=== PATIENT | male | born 1980 | race Caucasian/White ===

== ENCOUNTER 2017-07-17 09:27 | Inpatient (IN) | payer SELFPAY ==
[~2017-07-17] VITALS: Ht 167.6 cm; Wt 63.6 kg
[2017-07-17] MEDS ORDERED: SODIUM CHLORIDE 0.9% 1,000 ML IV ONE (11:07)
[2017-07-17] MEDS ORDERED: HALOPERIDOL LACTATE 5MG/ML VIAL IM STA (11:07)
[2017-07-17] MEDS ORDERED: DIPHENHYDRAMINE 50MG/ML VIAL IV STA (11:07)
[2017-07-17] MEDS ORDERED: LORAZEPAM 2MG/ML CPJ IV STA (11:07)
[2017-07-17 11:36] LABS: BASOPHILS % 0.8 % (0.0-2.0); EOSINOPHILS % 0.6 % (0.0-5.0); HEMATOCRIT. 42.7 % (42.0-52.0); HEMOGLOBIN. 14.9 g/dL (14.0-18.0); LYMPHOCYTES % 24.2 % (20.0-50.0); MEAN CORPUSCULAR HEMOGLOBIN 30.5 pg (28.0-32.0); MEAN CORPUSCULAR VOLUME 87.3 fL (80.0-94.0); MEAN PLATELET VOLUME 7.5 fl (7.4-10.4); MONOCYTES % 11.5 % (2.0-8.0); NEUTROPHILS % 62.9 % (40.0-76.0); PLATELET 311 x1000/uL (130-400); RED BLOOD CELL COUNT 4.89 mill/uL (4.7-6.1); RED CELL DISTRIBUTION WIDTH 13.6 % (11.6-14.6)
[2017-07-17 11:41] LABS: CHLORIDE 110 mEq/L (98-107)
[2017-07-17 11:46] LABS: ETHANOL BLOOD < 10 mg/dL
[2017-07-17 12:30] LABS: CLARITY URINE CLEAR (CLEAR); COLOR URINE YELLOW (YELLOW); KETONES URINE NEGATIVE (NEGATIVE); LEUKOCYTE ESTERASE URINE NEGATIVE (NEGATIVE); NITRITE URINE NEGATIVE (NEGATIVE); OCCULT BLOOD URINE 2+ (NEGATIVE); PROTEIN URINE NEGATIVE (NEGATIVE); SPECIFIC GRAVITY URINE 1.029 (1.005-1.030)
[2017-07-17 12:49] LABS: *AMPHETAMINES SCREEN URINE NEGATIVE (NEGATIVE); *BARBITURATES SCREEN URINE NEGATIVE (NEGATIVE); *BENZODIAZEPINES SCREEN URINE NEGATIVE (NEGATIVE); *COCAINE SCREEN URINE NEGATIVE (NEGATIVE); CANNABINOID URINE SCREEN PRESUMTIVE POSITIVE (NEGATIVE); METHADONE URINE SCREEN NEGATIVE (NEGATIVE); OPIATES URINE SCREEN NEGATIVE (NEGATIVE); PHENCYCLIDINE URINE SCREEN NEGATIVE (NEGATIVE)
[2017-07-17] MEDS ORDERED: DEXTROSE 50% WATER 50ML SYRINGE IV ONE ×3 (14:30→17:00)
[2017-07-17] MEDS ORDERED: ONDANSETRON HCL 4MG/2ML VIAL IV PRN (19:15)
[2017-07-17] MEDS ORDERED: ACETAMINOPHEN 325MG TABLET PO PRN (19:15)
[2017-07-17] MEDS ORDERED: CLONIDINE 0.1MG TABLET PO PRN (19:15)
[2017-07-17] MEDS: DEXT 5%/0.45% NACL 1000ML 1,000 ML IV SCH (19:34)
[2017-07-17 22:22] VITALS: BP 93/50
[2017-07-18] VITALS: BP 93/50
[2017-07-18 00:34] VITALS: BP 125/63
[2017-07-18] MEDS: DEXT 5%/0.45% NACL 1000ML 1,000 ML IV SCH (02:14)
[2017-07-18 04:00] VITALS: BP 99/43
[2017-07-18] MEDS ORDERED: HALOPERIDOL LACTATE 5MG/ML VIAL IM NR (07:45)
[2017-07-18 07:58] LABS: EOSINOPHILS % 1.4 % (0.0-5.0); HEMATOCRIT. 41.1 % (42.0-52.0); HEMOGLOBIN. 14.3 g/dL (14.0-18.0); LYMPHOCYTES % 36.8 % (20.0-50.0); MEAN CORPUSCULAR HEMOGLOBIN 30.8 pg (28.0-32.0); MEAN CORPUSCULAR VOLUME 88.3 fL (80.0-94.0); MEAN PLATELET VOLUME 7.7 fl (7.4-10.4); MONOCYTES % 12.1 % (2.0-8.0); NEUTROPHILS % 48.7 % (40.0-76.0); PLATELET 295 x1000/uL (130-400); RED BLOOD CELL COUNT 4.65 mill/uL (4.7-6.1); RED CELL DISTRIBUTION WIDTH 13.2 % (11.6-14.6)
[2017-07-18 08:41] LABS: CHLORIDE 108 mEq/L (98-107)
[2017-07-18 20:00] VITALS: BP 137/75
[2017-07-19] VITALS: BP 141/60
[2017-07-19 04:00] VITALS: BP 138/90
[2017-07-19] MEDS: HALOPERIDOL LACTATE 5MG/ML VIAL IM PRN ×3 (06:51→20:16)
[2017-07-19 20:00] VITALS: BP 104/49
[2017-07-19] MEDS: DIPHENHYDRAMINE 50MG/ML VIAL IM PRN (21:22)
[2017-07-19] MEDS: LORAZEPAM 2MG/ML CPJ IM PRN (21:22)
[2017-07-20 07:41] VITALS: BP 121/88
[2017-07-20] MEDS: HALOPERIDOL LACTATE 5MG/ML VIAL IM PRN (08:10)
[2017-07-20] MEDS: DEXT 5%/0.45% NACL 1000ML 1,000 ML IV SCH ×2 (11:02→19:02)
[2017-07-20 12:00] VITALS: BP 124/89
[2017-07-20] MEDS: DIPHENHYDRAMINE 50MG/ML VIAL IM PRN (12:38)
[2017-07-20] MEDS: LORAZEPAM 2MG/ML CPJ IM PRN (12:38)
[2017-07-21] VITALS: BP 132/78
[2017-07-21] MEDS: HALOPERIDOL LACTATE 5MG/ML VIAL IM PRN ×2 (06:00→17:09)
[2017-07-21] MEDS: LORAZEPAM 2MG/ML CPJ IM PRN ×2 (10:18→18:17)
[2017-07-21] MEDS: DEXT 5%/0.45% NACL 1000ML 1,000 ML IV SCH (11:02)
[2017-07-21 16:00] VITALS: BP 110/63
[2017-07-21 20:00] VITALS: BP 115/68
[2017-07-22] VITALS: BP 121/79
[2017-07-22] MEDS: HALOPERIDOL LACTATE 5MG/ML VIAL IM PRN ×3 (01:12→20:06)
[2017-07-22] MEDS: LORAZEPAM 2MG/ML CPJ IM PRN ×2 (03:13→14:23)
[2017-07-22 04:00] VITALS: BP 117/78
[2017-07-22] MEDS: DEXT 5%/0.45% NACL 1000ML 1,000 ML IV SCH (19:02)
[2017-07-22 19:44] VITALS: BP 117/62
[2017-07-23] VITALS (8 sets, daily range): BP systolic 96–133; BP diastolic 54–68
[2017-07-23] MEDS: LORAZEPAM 2MG/ML CPJ IM PRN ×3 (00:09→16:50)
[2017-07-23] MEDS: HALOPERIDOL LACTATE 5MG/ML VIAL IM PRN ×2 (03:24→11:24)
[2017-07-24] VITALS: BP 100/58
[2017-07-24 04:00] VITALS: BP 115/60
[2017-07-24] MEDS: LORAZEPAM 2MG/ML CPJ IM PRN ×2 (07:01→17:01)
[2017-07-24 08:00] VITALS: BP 117/78
[2017-07-24] MEDS: HALOPERIDOL LACTATE 5MG/ML VIAL IM PRN (09:36)
[2017-07-24 12:23] VITALS: BP 106/70
[2017-07-24 16:00] VITALS: BP 119/67
[2017-07-24 20:00] VITALS: BP 116/65
[2017-07-25] VITALS: BP 100/58
[2017-07-25] MEDS: HALOPERIDOL LACTATE 5MG/ML VIAL IM PRN (02:57)
[2017-07-25 04:00] VITALS: BP 123/72
== END 2017-07-25 08:24 | disposition left against medical advice (07) | DRG 861 ==
LOC: ER 09:34 → SUPCPDRO 19:01 → 5WST 20:41 → ENRESERV 20:41 → 5WST 07-18 09:10 → 8WST 07-23 00:55
PROVIDERS: ADMIT Hospitalist; ATTEND Hospitalist
DX: R41.82 Altered mental status, unspecified (principal); G92 Toxic encephalopathy; F15.90 Other stimulant use, unspecified, uncomplicated; F29 Unspecified psychosis not due to a substance or known physiological condition
CPT/HCPCS: 36415; 70450; 71045; 80053; 80305; 80307; 80329; 81003; 82962; 84484; 85025; 93005; 96361; 96372; 96374; 96375; 96376; 99285; G0482; J1200; J1630; J2060; J7030